=== PATIENT | female | born 2000 | race Caucasian/White ===

== ENCOUNTER 2023-10-20 10:15 | Outpatient (CLI) | payer BC, SELFPAY ==
--- NOTE | ~2023-10-20 | US_ITS ---
Pelvic ultrasound. Clinical History: Abnormal uterine bleeding Technique: Realtime transabdominal and transvaginal scanning of the pelvis was performed. Color flow Doppler and Doppler spectral analysis were performed. Findings: The uterus is anteverted. The endometrial stripe has a thickness of 2 mm. No focal mass is identified. Neither ovary seen. No adnexal mass seen. There is no evidence of free fluid in the cul de sac. Impression: No significant abnormality seen. Neither ovary visualized. Reviewed, dictated and finalized at location . Impression: No significant abnormality seen. Neither ovary visualized.
== END 2023-10-20 10:16 ==
LOC: MICIMG 10:16
PROVIDERS: PCP Nurse Practitioner Women's Health; Visit Provider Nurse Practitioner Women's Health
DX: N93.8 Other specified abnormal uterine and vaginal bleeding (principal)
CPT/HCPCS: 76830

== ENCOUNTER 2023-12-28 10:41 | Outpatient (CLI) | payer BC, SELFPAY ==
--- NOTE | ~2023-12-28 | MR_ITS ---
MRI of the left knee Clinical history: Pain Technique: Coronal proton density and proton density-weighted images, sagittal proton-density and T2 fat-sat images, and axial proton-density fat-saturated images were acquired. Findings: Anterior and posterior cruciate ligaments are intact. Medial collateral ligament and the la teral collateral ligament complex are intact. Popliteus tendon is intact. Medial and lateral menisci are intact, without evidence of tear. There is extensive marrow edema at the lateral tibial plateau region, with subchondral insufficiency fracture versus stress fracture present. Remaining bone marrow signals are unremarkable. Articular ca rtilage is well preserved throughout the knee. Extensor mechanism is intact. No joint effusion or Ryan's cyst. Impression: Stress fracture versus subchondral insufficiency fracture in the lateral tibial plateau region, with extensive surrounding marrow edema. Reviewed, dictated and finalized at [facility]. Impression: Stress fracture versus subchondral insufficiency fracture in the lateral tibial plateau region, with extensive surrounding marrow edema.
== END 2023-12-28 10:42 | disposition home or self-care (01) ==
PROVIDERS: PCP Nurse Practitioner Women's Health; Visit Provider Orthopaedic Surgery Sports Medicine
DX: M25.562 Pain in left knee (principal)
CPT/HCPCS: 73721